=== PATIENT | female | born 1975 | race Caucasian/White ===

== ENCOUNTER 2017-10-01 10:13 | Observation (INO) | payer OTHER ==
[2017-10-01] MEDS ORDERED: MECLIZINE HCL 25 MG TABLET (FP) PO ONE (10:24)
[2017-10-01] MEDS ORDERED: ONDANSETRON 4 MG/2 ML VIAL IVPUSH ONE (10:24)
--- NOTE | 2017-10-01 10:24 | PDOC ---
History of Present Illness - General Chief Complaint: Lightheaded Stated Complaint: DIZZY Time Seen by Provider: 10/01/17 10:24 History Source: Patient Exam Limitations: No Limitations - History of Present Illness Initial Comments: 10/01/17 11:02 Pt presents to the ED complaining of the acute onset of vertigo this morning. Patient also experienced nausea and vomiting and mild headache. Vertigo is made worse with changes in position of her head. Denies fever. Headache was gradual onset. Patient reports hearing a "sound" before the vertigo started. Denies hearing loss. reports that she collapsed to the floor because she was extremely vertiginous, but denies LOC. 10/01/17 11:35 10/01/17 11:47 Timing/Duration: 1 hour Past History - Past Medical History Allergies/Adverse Reactions: Allergies Allergy/AdvReac Type Severity Reaction Status Date / Time No Known Allergies Allergy Verified 10/01/17 17:09 Home Medications: Ambulatory Orders Control 10/01/17 Meclizine HCl [Antivert -] 25 mg PO Q8H PRN #30 tablet 10/03/17 COPD: No Other medical history: MIGRAINES - Suicide/Smoking/Psychosocial Hx Smoking History: Never smoked Hx Alcohol Use: No Drug/Substance Use Hx: No Substance Use Type: None Review of Systems - Review of Systems Able to Perform ROS?: Yes Is the patient limited Setswana proficient: No Constitutional: No: Symptoms Reported, See HPI, Chills, Diaphoresis, Fever, Loss of Appetite, Malaise, Night Sweats, Weakness, Weight Stable, Unintentional Wgt. Loss, Unexplained wgt Loss, Other HEENTM: Yes: Tinnitus. No: Symptoms Reported, See HPI, Eye Pain, Blurred Vision , Tearing, Recent change in vision, Double Vision, Cataracts, Ear Pain, Ocular Prothesis, Ear Discharge, Nose Pain, Nose Congestion, Nose Bleeding, Hearing Loss, Throat Pain, Throat Swelling, Mouth Pain, Dental Problems, Difficulty Swallowing, Mouth Swelling, Other Respiratory: No: Symptoms reported, See HPI, Cough, Orthopnea, Shortness of Breath, SOB with Exertion, SOB at Rest, Stridor, Wheezing, Productive cough, Hemoptysis, Other Cardiac (ROS): No: Symptoms Reported, See HPI, Chest Pain, Edema, Irregular Heart Rate, Lightheadedness, Palpitations, Syncope, Chest Tightness, Other ABD/GI: Yes: Nausea, Vomiting. No: Symptoms Reported, See HPI, Abdominal Distended, Abd. Pain w/ defecation, Blood Streaked Bowels, Constipated, Diarrhea , Difficulty Swallowing, Poor Appetite, Poor Fluid Intake, Rectal Bleeding, Indigestion, Abdominal cramping, Tarry Stools, Other : No: Symptoms Reported, See HPI, Burning, Dysuria, Discharge, Frequency, Flank Pain, Hematuria, Incontinence, Pain, Urgency, Testicular Swelling, Lesions , Testicular Pain, Other Musculoskeletal: No: Symptoms Reported, See HPI, Back Pain, Gout, Joint Pain, Joint Swelling, Muscle Pain, Muscle Weakness, Neck Pain, Joint Stiffness, Other Integumentary: No: Symptoms Reported, See HPI, Bruising, Change in Color, Change in Hair/Nails, Dryness, Erythema, Flushing, Lesions, Lumps, Pallor, Pruritus, Rash, Sweating, Other Neurological: Yes: Headache, Dizziness All Other Systems: Reviewed and Negative *Physical Exam - Vital Signs Last Vital Signs Temp Pulse Resp BP Pulse Ox 97.5 F L 88 16 129/89 100 10/01/17 10:15 10/01/17 10:15 10/01/17 10:15 10/01/17 10:15 10/01/17 10:15 - Physical Exam General Appearance: Yes: Nourished, Appropriately Dressed, Apparent Distress ( actively vomiting on ED arrival) HEENT: positive: EOMI, Normal ENT Inspection Neck: positive: Supple Respiratory/Chest: positive: Lungs Clear, Normal Breath Sounds Cardiovascular: positive: Regular Rhythm, Regular Rate, S1, S2 Gastrointestinal/Abdominal: positive: Normal Bowel Sounds, Flat, Soft. 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 Neurologically intact. Will treat with zofran, and reglan, give meclizine when tolerating Po and reassess. 10/01/17 13:21 Patient is continually vertiginous despite treatment. Given this and her headache, will check CT head to rule out intracranial bleed. *DC/Admit/Observation/Transfer Diagnosis at time of Disposition: Peripheral vertigo Qualifiers: Laterality: unspecified laterality Qualified Code(s): H81.399 - Other peripheral vertigo, unspecified ear - Discharge Dispostion Condition at time of disposition: Improved Decision to Admit order: Yes - Prescriptions - Referrals - Patient Instructions - Post Discharge Activity
[2017-10-01] MEDS ORDERED: ONDANSETRON 4 MG/2 ML VIAL ONE ×2 (10:29→14:13)
[2017-10-01 10:45] LABS: EOS % 0.2 % (0-4.5); PLATELET COUNT 265 K/MM3 (134-434); WHITE BLOOD COUNT 7.8 K/mm3 (4.0-10.8)
[2017-10-01 10:53] LABS: ALBUMIN 3.9 g/dl (3.5-5.0); ALK PHOS 36 U/L (32-92); ANION GAP 6 (8-16); BILIRUBIN,TOTAL 0.7 mg/dl (0.2-1.0); BLOOD UREA NITROGEN 14 mg/dl (7-18); CALCIUM 8.9 mg/dl (8.4-10.2); CHLORIDE 104 mmol/L (98-107); CO2 24 mmol/L (22-28); CREATININE 0.9 mg/dl (0.6-1.3); GLUCOSE,RANDOM 156 mg/dl (74-106); SGOT/AST 21 U/L (10-42); SGPT/ALT 16 U/L (10-40); SODIUM 134 mmol/L (136-145); TOT PROT 6.7 g/dl (6.4-8.3)
[2017-10-01 10:55] LABS: BASO % 0.4 % (0-2.0); HEMATOCRIT 40.1 % (32.4-45.2); HEMOGLOBIN 13.7 GM/dl (10.7-15.3); LYMPH % 15.2 % (8-40); MCH 30.1 pg (25.7-33.7); MCHC 34.1 g/dl (32.0-36.0); MEAN CELL VOLUME 88.3 fl (80-96); MEAN PLT VOLUME 9.2 fl (7.5-11.1); NEUT % 82.2 % (42.8-82.8); RBC 4.54 M/mm3 (3.60-5.2); RDW 11.7 % (11.6-15.6)
[2017-10-01] MEDS ORDERED: ACETAMINOPHEN 1000 MG/100 ML VIAL (NON FORMULARY) IVPB ONE (11:01)
[2017-10-01] MEDS ORDERED: ACETAMINOPHEN INJECTION 100 ML IVPB ONE (11:03)
[2017-10-01] MEDS ORDERED: MECLIZINE HCL 25 MG TABLET (FP) ONE (11:03)
[2017-10-01] MEDS ORDERED: METOCLOPRAMIDE HCL INJECTION 10 MG/2 ML VIAL IVPUSH ONE (11:10)
[2017-10-01] MEDS ORDERED: diazePAM CARPU-JECT 10 MG/2 ML DISP.SYRIN IVPUSH ONE (12:06)
[2017-10-01] MEDS ORDERED: diazePAM CARPU-JECT 10 MG/2 ML DISP.SYRIN ONE (12:20)
[2017-10-01] MEDS ORDERED: ONDANSETRON 4 MG/2 ML VIAL IVPB ONE (14:13)
[2017-10-01] MEDS ORDERED: PROCHLORPERAZINE INJECTION 10 MG/2 ML VIAL IVPB ONE (15:22)
[2017-10-01] MEDS ORDERED: PROCHLORPERAZINE INJECTION 10 MG/2 ML VIAL ONE (15:24)
--- NOTE | 2017-10-01 15:49 | PDOC ---
*Physical Exam - Vital Signs Last Vital Signs Temp Pulse Resp BP Pulse Ox 98.6 F 62 16 114/72 100 10/01/17 14:51 10/01/17 14:51 10/01/17 10:15 10/01/17 14:51 10/01/17 14:51 <Katheryn Bolton - Last Filed: 10/01/17 15:53> - Vital Signs Last Vital Signs Temp Pulse Resp BP Pulse Ox 98.6 F 62 16 114/72 100 10/01/17 14:51 10/01/17 14:51 10/01/17 10:15 10/01/17 14:51 10/01/17 14:51 <Braulio Granados - Last Filed: 10/01/17 17:03> ED Treatment Course - LABORATORY CBC & Chemistry Diagram: 10/01/17 10:27 10/01/17 10:27 - ADDITIONAL ORDERS Additional order review: Laboratory Results 10/01/17 10/01/17 10:27 10:27 Sodium 134 L Potassium 4.0 Chloride 104 Carbon Dioxide 24 Anion Gap 6 L BUN 14 Creatinine 0.9 Creat Clearance w eGFR > 60 Random Glucose 156 H Calcium 8.9 Total Bilirubin 0.7 AST 21 ALT 16 Alkaline Phosphatase 36 Total Protein 6.7 Albumin 3.9 Serum , Qual Negative 10/01/17 10:27 RBC 4.54 MCV 88.3 MCHC 34.1 RDW 11.7 MPV 9.2 Neutrophils % 82.2 Lymphocytes % 15.2 Monocytes % 2.0 L Eosinophils % 0.2 Basophils % 0.4 - RADIOLOGY Radiograph Interpretation: 10/01/17 15:[address] has been reviewed by Dr. Granados and over-read by Radiology. IMPRESSION: Normal CT scan of the head with no evidence of acute intracranial pathology. - Medications Given in the ED: ED Medications Discontinued Medications Generic Name Dose Route Start Last Admin Trade Name Freq PRN Reason Stop Dose Admin Acetaminophen 1,000 mg 10/01/17 11:01 10/01/17 11:07 Ofirmev Injection - IVPB 10/01/17 11:02 1,000 mg ONCE ONE Administration Diazepam 2.5 mg 10/01/17 12:06 10/01/17 12:27 Valium Injection - IVPUSH 10/01/17 12:07 2.5 mg ONCE ONE Administration Diphenhydramine HCl 25 mg 10/01/17 15:22 10/01/17 15:35 Benadryl Injection - IVPB 10/01/17 15:23 25 mg ONCE ONE Administration Meclizine HCl 25 mg 10/01/17 10:24 10/01/17 11:28 Antivert - PO 10/01/17 10:25 Not Given ONCE ONE Metoclopramide HCl 10 mg 10/01/17 11:10 10/01/17 11:28 Reglan Injection - IVPUSH 10/01/17 11:11 10 mg ONCE ONE Administration Ondansetron HCl 4 mg 10/01/17 10:24 10/01/17 10:33 Zofran Injection IVPUSH 10/01/17 10:25 4 mg ONCE ONE Administration Ondansetron HCl 4 mg 10/01/17 14:13 10/01/17 14:18 Zofran Injection IVPB 10/01/17 14:14 4 mg ONCE ONE Administration Prochlorperazine Edisylate 10 mg 10/01/17 15:22 10/01/17 15:35 Compazine Injection - IVPB 10/01/17 15:23 10 mg ONCE ONE Administration <Katheryn Bolton - Last Filed: 10/01/17 15:53> - LABORATORY CBC & Chemistry Diagram: 10/01/17 10:27 10/01/17 10:27 - ADDITIONAL ORDERS Additional order review: Laboratory Results 10/01/17 10/01/17 10:27 10:27 Sodium 134 L Potassium 4.0 Chloride 104 Carbon Dioxide 24 Anion Gap 6 L BUN 14 Creatinine 0.9 Creat Clearance w eGFR > 60 Random Glucose 156 H Calcium 8.9 Total Bilirubin 0.7 AST 21 ALT 16 Alkaline Phosphatase 36 Total Protein 6.7 Albumin 3.9 Serum , Qual Negative 10/01/17 10:27 RBC 4.54 MCV 88.3 MCHC 34.1 RDW 11.7 MPV 9.2 Neutrophils % 82.2 Lymphocytes % 15.2 Monocytes % 2.0 L Eosinophils % 0.2 Basophils % 0.4 - Medications Given in the ED: ED Medications Discontinued Medications Generic Name Dose Route Start Last Admin Trade Name Freq PRN Reason Stop Dose Admin Acetaminophen 1,000 mg 10/01/17 11:01 10/01/17 11:07 Ofirmev Injection - IVPB 10/01/17 11:02 1,000 mg ONCE ONE Administration Diazepam 2.5 mg 10/01/17 12:06 10/01/17 12:27 Valium Injection - IVPUSH 10/01/17 12:07 2.5 mg ONCE ONE Administration Diphenhydramine HCl 25 mg 10/01/17 15:22 10/01/17 15:35 Benadryl Injection - IVPB 10/01/17 15:23 25 mg ONCE ONE Administration Meclizine HCl 25 mg 10/01/17 10:24 10/01/17 11:28 Antivert - PO 10/01/17 10:25 Not Given ONCE ONE Metoclopramide HCl 10 mg 10/01/17 11:10 10/01/17 11:28 Reglan Injection - IVPUSH 10/01/17 11:11 10 mg ONCE ONE Administration Ondansetron HCl 4 mg 10/01/17 10:24 10/01/17 10:33 Zofran Injection IVPUSH 10/01/17 10:25 4 mg ONCE ONE Administration Ondansetron HCl 4 mg 10/01/17 14:13 10/01/17 14:18 Zofran Injection IVPB 10/01/17 14:14 4 mg ONCE ONE Administration Prochlorperazine Edisylate 10 mg 10/01/17 15:22 10/01/17 15:35 Compazine Injection - IVPB 10/01/17 15:23 10 mg ONCE ONE Administration <Braulio Granados - Last Filed: 10/01/17 17:03> Medical Decision Making - Medical Decision Making 10/01/17 16:27 Patient is a 42-year-old female who came in today with room spinning vertigo sensation along with nausea and vomiting of clear fluid. She did have some ringing in her ears, and initially had some headache, which she denies any other associated neurological symptoms. Specifically there is no visual change , no speech or swallowing change, and no focal numbness or weakness. Her vertigo gets worse with head movements. She feels better lying still with her head turned to the right side. On my examination, she is continuing to have exacerbations of vertigo with head movement despite receiving multiple medications. She is having some dry heaves , and spitting up foamy white saliva. Repeat physical examination is notable for normal cranial nerves, full motor strength, normal sensation, and no dysmetria in the upper or lower extremities on finger to nose or heel-knee- william. Mental status is a bit sleepy from all of the medication, but otherwise normal. Given the persistence of severe symptoms, patient will be admitted to observation status. Head CT scan reviewed and normal. Laboratory studies reviewed and unremarkable. Borderline hyponatremia in the setting of vomiting is not of any significance. Mild hyperglycemia noted, but patient was not fasting. Laboratory Results - last 24 hr 10/01/17 10/01/17 10/01/17 10:27 10:27 10:27 WBC 7.8 RBC 4.54 Hgb 13.7 Hct 40.1 MCV 88.3 MCH 30.1 MCHC 34.1 RDW 11.7 Plt Count 265 MPV 9.2 Absolute Neuts (auto) 6.4 Neutrophils % 82.2 Lymphocytes % 15.2 Monocytes % 2.0 L Eosinophils % 0.2 Basophils % 0.4 Sodium 134 L Potassium 4.0 Chloride 104 Carbon Dioxide 24 Anion Gap 6 L BUN 14 Creatinine 0.9 Creat Clearance w eGFR > 60 Random Glucose 156 H Calcium 8.9 Total Bilirubin 0.7 AST 21 ALT 16 Alkaline Phosphatase 36 Total Protein 6.7 Albumin 3.9 Serum , Qual Negative <Braulio Granados - Last Filed: 10/01/17 17:03> *DC/Admit/Observation/Transfer - Attestations Scribe Attestion: 10/01/17 15:55 Documentation prepared by Katheryn Bolton, acting as director biomedical engineering for Braulio Granados MD. <Katheryn Bolton - Last Filed: 10/01/17 15:53> - Discharge Dispostion Decision to Admit order: Yes Decision to Admit order Date/Time: 10/01/17 17:03 endorsed to Shiv Crespo, Attending will be Dr. Cannon. <Braulio Granados - Last Filed: 10/01/17 17:03> Diagnosis at time of Disposition: Peripheral vertigo Qualifiers: Laterality: unspecified laterality Qualified Code(s): H81.399 - Other peripheral vertigo, unspecified ear - Discharge Dispostion Condition at time of disposition: Fair
[2017-10-01 18:08] VITALS: BMI 18.4
[2017-10-01] MEDS ORDERED: METOCLOPRAMIDE HCL INJECTION 10 MG/2 ML VIAL IVPUSH PRN (18:40)
[2017-10-01] MEDS ORDERED: ONDANSETRON 4 MG/2 ML VIAL IVPUSH PRN (18:40)
--- NOTE | 2017-10-01 18:55 | HP ---
CHIEF COMPLAINT: Vertigo PCP: none HISTORY OF PRESENT ILLNESS: This is a 42 year old female with no significant PMHx who presented to the ED with vertigo. She reports she woke up this morning in her usual health and then went to the restroom and she began to hear a ringing in her ears. She reports then feeling like "everything spinning around me". She states she fell to the ground and starting calling out for help. She reports she did not eat any breakfast. + nausea/vomiting. She denies having a headache, however she does report a history of migraines. She denies any neck pain, chest pain, palpitations, shortness of breath, lower extremity edema, urinary symptoms. ER course was notable for: (1) Temp 97.5, pulse 88, BP 129/89, resp 16, O2 100% on RA (2) Head CT with no acute intracranial pathology Recent Travel: denies PAST MEDICAL HISTORY: migraines PAST SURGICAL HISTORY: denies Social History: Smoking: denies Alcohol: denies Drugs: denies Family History: Allergies No Known Allergies Allergy (Verified 10/01/17 17:09) HOME MEDICATIONS: Home Medications Medication Instructions Recorded Control 10/01/17 REVIEW OF SYSTEMS CONSTITUTIONAL: Absent: fever, chills, diaphoresis, generalized weakness, malaise, loss of appetite, weight change HEENT: Absent: rhinorrhea, nasal congestion, throat pain, throat swelling, difficulty swallowing, mouth swelling, ear pain, eye pain, visual changes CARDIOVASCULAR: Absent: chest pain, syncope, palpitations, irregular heart rate, lightheadedness , peripheral edema RESPIRATORY: Absent: cough, shortness of breath, dyspnea with exertion, orthopnea, wheezing, stridor, hemoptysis GASTROINTESTINAL: Nausea and vomiting 2/2 vertigo Absent: abdominal pain, abdominal distension, diarrhea, constipation, melena, hematochezia GENITOURINARY: Absent: dysuria, frequency, urgency, hesitancy, hematuria, flank pain, genital pain MUSCULOSKELETAL: Absent: myalgia, arthralgia, joint swelling, back pain, neck pain SKIN: Absent: rash, itching, pallor HEMATOLOGIC/IMMUNOLOGIC: Absent: easy bleeding, easy bruising, lymphadenopathy, frequent infections ENDOCRINE: Absent: unexplained weight gain, unexplained weight loss, heat intolerance, cold intolerance NEUROLOGIC: Vertigo that began immediately after ringing in her ears. Absent: headache, focal weakness or paresthesias, unsteady gait, seizure, mental status changes, bladder or bowel incontinence PSYCHIATRIC: Absent: anxiety, depression, suicidal or homicidal ideation, hallucinations. PHYSICAL EXAMINATION Vital Signs - 24 hr 10/01/17 10/01/17 10/01/17 10:15 14:51 17:23 Temperature 97.5 F L 98.6 F 98.4 F Pulse Rate 88 Pulse Rate [ 62 80 Left Radial] Respiratory 16 16 Rate Blood Pressure 129/89 Blood Pressure 114/72 102/60 [Right Arm] O2 Sat by Pulse 100 100 100 Oximetry (%) 10/01/17 10/01/17 17:49 18:14 Temperature 97.9 F Pulse Rate 68 Pulse Rate [ Left Radial] Respiratory 16 Rate Blood Pressure 105/66 Blood Pressure [Right Arm] O2 Sat by Pulse 97 97 Oximetry (%) GENERAL: Awake, alert, and fully oriented, eyes closed during most of the evaluation. Appears restless HEAD: Normal with no signs of trauma. EYES: B/l nystagmus. Pupils equal, round and reactive to light, extraocular movements intact, sclera anicteric, conjunctiva clear. No lid lag. EARS, NOSE, THROAT: Ears normal, nares patent, oropharynx clear without exudates. Moist mucous membranes. NECK: Normal range of motion, supple without lymphadenopathy LUNGS: Breath sounds equal, clear to auscultation bilaterally. No wheezes, and no crackles. No accessory muscle use. HEART: Regular rate and rhythm, normal S1 and S2 ABDOMEN: Soft, nontender, not distended, normoactive bowel sounds, no guarding MUSCULOSKELETAL: Normal range of motion at all joints. No bony deformities or tenderness UPPER EXTREMITIES: 2+ pulses, warm, well-perfused. No cyanosis. No clubbing. No peripheral edema. LOWER EXTREMITIES: 2+ pulses, warm, well-perfused. No calf tenderness. No peripheral edema. NEUROLOGICAL: Cranial nerves II-XII intact. Normal speech. PSYCHIATRIC: Cooperative. Good eye contact. Appropriate mood and affect. SKIN: Warm, dry, normal turgor, no rashes or lesions noted, normal capillary refill. Laboratory Results - last 24 hr 10/01/17 10/01/17 10/01/17 10:27 10:27 10:27 WBC 7.8 RBC 4.54 Hgb 13.7 Hct 40.1 MCV 88.3 MCH 30.1 MCHC 34.1 RDW 11.7 Plt Count 265 MPV 9.2 Absolute Neuts (auto) 6.4 Neutrophils % 82.2 Lymphocytes % 15.2 Monocytes % 2.0 L Eosinophils % 0.2 Basophils % 0.4 Sodium 134 L Potassium 4.0 Chloride 104 Carbon Dioxide 24 Anion Gap 6 L BUN 14 Creatinine 0.9 Creat Clearance w eGFR > 60 Random Glucose 156 H Calcium 8.9 Total Bilirubin 0.7 AST 21 ALT 16 Alkaline Phosphatase 36 Total Protein 6.7 Albumin 3.9 Serum , Qual Negative Assessment: This is a 42 year old female with PMHx of migraines who presented to the ED with vertigo. Plan: 1) Vertigo - Discussed with Dr. Coffey, patient denies any headache or neck pain at this time, can defer ordering MRI - IV fluids given the patient has nausea and vomiting - Compazine prn - Zofran prn - Reglan prn - Meclazine prn - Benadryl prn - Neuro checks q4h - Head CT reviewed - F/u neuro consult 2) F/E/N: - Regular diet as tolerated - IV fluids 3) Prophylaxis: - SCDs bilaterally - OOB with assistance 4) Dispo: - Once condition improves CODE STATUS: FULL CODE Visit type - Emergency Visit Emergency Visit: Yes ED Registration Date: 10/01/17 Care time: The patient presented to the Emergency Department on the above date and was hospitalized for further evaluation of their emergent condition. - New Patient This patient is new to me today: Yes Date on this admission: 10/01/17 - Critical Care Critical Care patient: No Hospitalist Screening - Colonoscopy Questionnaire Colonoscopy Questionnaire: Colonoscopy Questionnaire - Patient: 50 - 75 years old and never had a screening colonoscopy: No History of colon or rectal polyps, or CA: No History of IBD, Crohn's disease or UC: No History of abdominal radiation therapy as a child: No - Relative: 1 with colon or rectal CA, or polyps at age 60 or younger: Unknown Colon or rectal CA diagnosed at age 45 or younger: Unknown Multiple relatives with colon or rectal CA: Unknown - Outcome: Screening Result: Negative Screen
[2017-10-01] MEDS ORDERED: PROCHLORPERAZINE MALEATE 5 MG TABLET PO PRN (18:56)
[2017-10-01] MEDS ORDERED: MECLIZINE HCL 25 MG TABLET (FP) PO PRN (18:57)
[2017-10-01] MEDS ORDERED: SODIUM CHLORIDE 1,000 ML IV SCH (19:00)
[2017-10-01] MEDS ORDERED: diphenhydrAMINE HCL 25 MG CAPSULE (FP) PO PRN (19:01)
[2017-10-02 08:10] LABS: HEMATOCRIT 34.9 % (32.4-45.2); HEMOGLOBIN 11.9 GM/dl (10.7-15.3); MCHC 34.2 g/dl (32.0-36.0); MEAN CELL VOLUME 87.9 fl (80-96); MEAN PLT VOLUME 8.1 fl (7.5-11.1); PLATELET COUNT 227 K/MM3 (134-434); RBC 3.97 M/mm3 (3.60-5.2); RDW 11.6 % (11.6-15.6); WHITE BLOOD COUNT 7.4 K/mm3 (4.0-10.8)
[2017-10-02 08:34] LABS: ANION GAP 5 (8-16); BLOOD UREA NITROGEN 14 mg/dl (7-18); CALCIUM 8.3 mg/dl (8.4-10.2); CHLORIDE 107 mmol/L (98-107); CO2 25 mmol/L (22-28); CREATININE 0.8 mg/dl (0.6-1.3); GLUCOSE,RANDOM 83 mg/dl (74-106); PHOSPHOROUS 2.9 mg/dl (2.5-4.6); POTASSIUM 3.7 mmol/L (3.5-5.1); SODIUM 137 mmol/L (136-145)
--- NOTE | 2017-10-02 12:48 | DS ---
Physical Exam: SUBJECTIVE: Patient seen and examined, reports improvement of vertigo with meclizine, denies any headache or nausea. OBJECTIVE: patient is a 42 year old female with no significant PMHx who presented to the ED with vertigo. She reports she woke up this morning in her usual health and then went to the restroom and she began to hear a ringing in her ears. She reports then feeling like "everything spinning around me". She states she fell to the ground and starting calling out for help. She reports she did not eat any breakfast. + nausea/vomiting. She denies having a headache, however she does report a history of migraines. She denies any neck pain, chest pain, palpitations, shortness of breath, lower extremity edema, urinary symptoms. ER course was notable for: (1) Temp 97.5, pulse 88, BP 129/89, resp 16, O2 100% on RA (2) Head CT with no acute intracranial pathology Vital Signs Period Temp Pulse Resp BP Sys/Cyr Pulse Ox Last 24 Hr 97.8 F-98.6 F 62-103 16-20 102-119/60-72 96-100 PHYSICAL EXAM GENERAL: The patient is awake, alert, and fully oriented, in no acute distress. HEAD: Normal with no signs of trauma. EYES: PERRL, extraocular movements intact, sclera anicteric, conjunctiva clear. ENT: Ears normal, nares patent, oropharynx clear without exudates, moist mucous membranes. NECK: Trachea midline, full range of motion, supple. LUNGS: Breath sounds equal, clear to auscultation bilaterally, no wheezes, no crackles, no accessory muscle use. HEART: Regular rate and rhythm, S1, S2 without murmur, rub or gallop. ABDOMEN: Soft, nontender, nondistended, normoactive bowel sounds, no guarding, no rebound, no hepatosplenomegaly, no masses. EXTREMITIES: 2+ pulses, warm, well-perfused, no edema. NEUROLOGICAL: Cranial nerves II through XII grossly intact. Normal speech, gait not observed. PSYCH: Normal mood, normal affect. SKIN: Warm, dry, normal turgor, no rashes or lesions noted. LABS Laboratory Results - last 24 hr 10/02/17 10/02/17 07:50 07:50 WBC 7.4 RBC 3.97 Hgb 11.9 Hct 34.9 MCV 87.9 MCH 30.0 MCHC 34.2 RDW 11.6 Plt Count 227 MPV 8.1 Sodium 137 Potassium 3.7 Chloride 107 Carbon Dioxide 25 Anion Gap 5 L BUN 14 Creatinine 0.8 Creat Clearance w eGFR > 60 Random Glucose 83 D Calcium 8.3 L Phosphorus 2.9 [address] 2[address]: normal ct scan HOSPITAL COURSE: 1) Vertigo - neurology, Dr. Coffey, consulted and followed - vertigo improved with meclizine - head ct noted as above plan - follow up with ENT and neurology within 2 weeks - continue meclizine prn Date of Admission:10/01/17 Date of Discharge: 10/02/17 Minutes to complete discharge: 45 Discharge Summary Reason For Visit: DIZZY Condition: Fair - Instructions - Home Medications Comprehensive Discharge Medication List: Ambulatory Orders Control 10/01/17
[2017-10-02] MEDS ORDERED: NAPROXEN 375 MG TABLET (FP) PO ONE (22:00)
[2017-10-03 06:44] VITALS: TEMP 98.1
[2017-10-03 08:37] VITALS: BP 110/75; PULSE 80
--- NOTE | 2017-10-03 09:12 | DS ---
Physical Exam: SUBJECTIVE: Patient seen and examined. states she feels a little light headed when standing quickly but has not had repeat episodes of room spinning or ear ringing. never had episodes in the past. has not taken any abx recently for any infection. says her eating has improved. denies CP, SOB, fever, chills, N/V/C/D OBJECTIVE: Vital Signs Period Temp Pulse Resp BP Sys/Cyr Pulse Ox Last 24 Hr 98.0 F-98.5 F 63-103 16-19 100-118/64-79 98-100 PHYSICAL EXAM GENERAL: The patient is awake, alert, and fully oriented, in no acute distress. HEAD: Normal with no signs of trauma. EYES: extraocular movements intact, sclera anicteric, conjunctiva clear. no nystagmus ENT: Ears normal, nares patent, oropharynx clear without exudates, moist mucous membranes. NECK: Trachea midline, full range of motion, supple. LUNGS: Breath sounds equal, clear to auscultation bilaterally, no wheezes, no crackles, no accessory muscle use. HEART: Regular rate and rhythm, S1, S2 without murmur, rub or gallop. ABDOMEN: Soft, nontender, nondistended, normoactive bowel sounds, no guarding, no rebound, no hepatosplenomegaly, no masses. EXTREMITIES: 2+ pulses, warm, well-perfused, no edema. NEUROLOGICAL: Cranial nerves II through XII grossly intact. Normal speech, gait not observed. negative dysmetria/dysdakinesia PSYCH: Normal mood, normal affect. SKIN: Warm, dry, normal turgor, no rashes or lesions noted. LABS HOSPITAL COURSE: Date of Admission:10/01/17 Date of Discharge: 10/03/17 admitting diagnosis: dizzyness possible due to dehydration vs vertigo Pre hospital course 42 year old female with no significant PMHx who presented to the ED with vertigo. She reports she woke up this morning in her usual health and then went to the restroom and she began to hear a ringing in her ears. She reports then feeling like "everything spinning around me". She states she fell to the ground and starting calling out for help. She reports she did not eat any breakfast. + nausea/vomiting. She denies having a headache, however she does report a history of migraines. She denies any neck pain, chest pain, palpitations, shortness of breath, lower extremity edema, urinary symptoms. Subsequent hospital course medicine observation. workup negative. head CT negative. started on IVF. clinically improved. neuro consulted, gave recommendations over the phone. meclizine given with unknown effect. no recurring symptoms. orthostatics checked on day of discharge and were negative. d/c home with instructions to increase water intake during these hot summer months. Minutes to complete discharge: 40 Discharge Summary Reason For Visit: DIZZY Condition: Improved - Instructions Diet, Activity, Other Instructions: You were admitted to the hospital due to rinning in your ears and dizzyness. This liekly occurred due to being very dehydrated when you first came in. Your symptoms have improved INcrease your water intake over the next few days during the heat wave. Avoid prolonged exposure in the sun as this can cause you to become dehydrated. If you develop similiar symptoms and do not resolve with drinking some water take meclizine. If you start developing symptoms again follow up with neurologist, Dr Lindsey, his contact information has been provided Follow up with your primary care doctor this wekk. if any new or persistent symptoms develop please return to the emergency department Referrals: Chapincito Restrepo MD [Staff Physician] - Juliano Lindsey DO [Staff Physician] - 2 Weeks Disposition: HOME - Home Medications Comprehensive Discharge Medication List: Ambulatory Orders Control 10/01/17 Meclizine HCl [Antivert -] 25 mg PO Q8H PRN #30 tablet 10/02/17 This patient is new to me today: Yes Date on this admission: 10/03/17 Emergency Visit: Yes ED Registration Date: 10/01/17 Care time: The patient presented to the Emergency Department on the above date and was hospitalized for further evaluation of their emergent condition. Critical Care patient: No - Discharge Referral Referred to [facility] Med P.C.: No
--- NOTE | 2017-10-04 10:17 | EKG ---
Test Reason : Blood Pressure : / mmHG Vent. Rate : 069 BPM Atrial Rate : 069 BPM P-R Int : 164 ms QRS Dur : 086 ms QT Int : 428 ms P-R-T Axes : 061 082 053 degrees QTc Int : 458 ms NORMAL SINUS RHYTHM NORMAL ECG NO PREVIOUS ECGS AVAILABLE Confirmed by JERRY QUIJANO, NEIL ([id number]) on 10/04/2017 10:16:37 AM Referred By: JERSON Confirmed By:NEIL EDWARDS MD
== END 2017-10-03 10:01 | disposition home or self-care (01) ==
LOC: FER 10:13 → INTOOBSV 17:03 → FM/S 17:03
PROVIDERS: ADMIT Hospitalist; ATTEND Internal Medicine
PROC: 3E033NZ Introduction of Analgesics, Hypnotics, Sedatives into Peripheral Vein, Percutaneous Approach (ICD-10-PCS; principal; 2017-10-01)
PROC: 3E033GC Introduction of Other Therapeutic Substance into Peripheral Vein, Percutaneous Approach (ICD-10-PCS; 2017-10-01)
DX: H81.399 Other peripheral vertigo, unspecified ear (principal)
CPT/HCPCS: 36415; 70450-TC; 80048; 80053; 83735; 84100; 84703; 85025; 85027; 93005; 99283-25; G0378; J0131